=== PATIENT | female | born 1970 | race Caucasian/White ===

== ENCOUNTER 2018-01-08 19:10 | Observation (INO) | payer OTHER ==
[~2018-01-08] VITALS: Ht 175.3 cm; Wt 107.0 kg
[~2018-01-08 19:10] MED LIST: BACTRIM DS1 TAB PO; BENAZEPRIL10 MG PO; BENAZEPRIL40 M1 PO; BENAZEPRIL5 M3 PO; BENAZEPRIL5 MG PO; BYETTA10 MC1 SC; BYETTA10 SC; DOXYCYCL HYC100 MG PO; DOXYCYCLINE75 MG OR; GABAPENTIN300 MG PO; GABAPENTIN600 MG PO; GLIMEPIRIDE2 MG PO; GLIMEPIRIDE4 MG PO; HUMALOG 751000 UNITS IV; HUMALOG KW75 MG/25 K SC; HUMALOG100 MG/ML SC; HUMULIN R1 M1; HUMULIN R1 M1 SC; INSULIN SC; INSULIN SY0.3 MG/36 SC; LEVEMIR; LEVEMIR FLEXPEN SC; LEVEMIR SC; LEVEMIR1000 UNITS IM; LEVEMIR1000 UNITS SC; LIPITOR40 M1 PO; LOVASTATIN10 M1; LOVASTATIN10 M1 PO; METFORMIN1000 MG PO; METFORMIN500 MG PO; MEVACOR10 MG PO; MICROLET SC; MULTI VIT PO; NEURONTIN300 MG PO; NO HOME MEDS; NOVOLO1 SC; ONE TOUC7 XX; ONE TOUCH ULTRA 100 XX; TESSALON200 MG OR; TRAZODONE50 MG PO; TRICOR145 MG PO; ULTRAM50 M1 PO; VENTOLIN HF1 IN; VICOPROFEN PO; ZITHROMAX250 MG OR; ZITHROMAX250 MG PO; [UNRECOGNIZED DRUG - SUPPLY] SC; [UNRECOGNIZED DRUG - SUPPLY] SC
--- NOTE | 2018-01-08 19:20 | NUR ---
PT TO EXAM 14 AND CHANGED INTO GOWN. EKG BEING DONE
--- NOTE | 2018-01-08 19:49 | NUR ---
PT NOW WITH IV ESTABLISHED, BLOOD DRAWN, PLACED ON MONITOR. NO ACUTE DISTRESS NOTED. PT STATED THAT SHE HAD THE FEELING AGAIN, SEEN TO HAVE A PVC ON SCREEN.
[2018-01-08 20:08] LABS: HEMATOCRIT 42.9 % (37.0-47.0); HEMOGLOBIN 14.4 g/dl (12.0-16.0); IMMATURE GRANULOCYTES 0.7 % (0.0-1.0); MEAN CELL VOLUME 89.4 fL CALC (80.0-100.0); MEAN CORPUSCULAR HGB CONC 33.6 g/L CALC (32.0-36.0); NEUT# 6.85 thou/uL (2.00-7.15); RED BLOOD COUNT 4.8 mill/uL (4.20-5.60)
[2018-01-08 20:11] LABS: URINE BILIRUBIN - DIPSTICK NEGATIVE (NEGATIVE); URINE BLOOD DIPSTICK NEGATIVE (NEGATIVE); URINE COLOR YELLOW; URINE GLUCOSE - DIPSTICK 250 mg/dL (NEGATIVE); URINE KETONE NEGATIVE (NEGATIVE); URINE LEUK ESTERASE NEGATIVE (NEGATIVE); URINE NITRITE - DIPSTICK NEGATIVE (Negative); URINE PROTEIN - DIPSTICK NEGATIVE (NEG-TRACE); URINE SPECIFIC GRAVITY >=1.030; URINE UROBILINOGEN - DIPSTICK 0.2 E.U./dL (0.2)
[2018-01-08] MEDS ORDERED: LANTUS100 UNIT/M (20:25)
[2018-01-08 20:33] LABS: URINE CLARITY CLEAR
[2018-01-08 20:34] LABS: BARBITURATES NEGATIVE (NEGATIVE); COCAINE NEGATIVE (NEGATIVE); METHADONE NEGATIVE (NEGATIVE); OXCYCODONE NEGATIVE (NEGATIVE); TETRAHYDROCANNABIONOL NEGATIVE (NEGATIVE); TRICYLIC ANTIDEPRESSANTS NEGATIVE (NEGATIVE)
[2018-01-08 20:56] LABS: ACT PARTIAL THROMBO TIME 24.7 SECONDS (20.0-32.5); PROTHROMBIN TIME 11.2 SECONDS (9.0-12.5)
[2018-01-08 21:10] LABS: ALBUMIN 3.8 g/dL (3.2-5.0); ALKALINE PHOSPHATASE 74 u/l (38-126); ANION GAP 20 (6-22 (CALC)); BILIRUBIN, TOTAL 0.5 mg/dL (0.0-1.4); BUN 18 mg/dL (7-17); BUN/CREATININE RATIO 31 (12-20 (CALC)); CARBON DIOXIDE 19 mmol/l (22-30); CHLORIDE 103 mmol/l (95-108); CREATININE 0.6 mg/dL (0.5-1.0); ETHYL ALCOHOL 0 mg/dl (0-30); GFR > 60 ML/MIN (>=60 (CALC)); GFR FOR AFR.AMER. > 60 ML/MIN (>=60 (CALC)); POTASSIUM 4.1 mmol/l (3.5-5.1); SGOT/AST 24 u/l (14-36); SGPT/ALT 31 u/l (9-52); SODIUM 137 mmol/l (137-146); TOTAL PROTEIN 6.7 g/dL (6.3-8.2)
[2018-01-08 21:22] LABS: MYOGLOBIN 45 ng/mL (0 - 62)
--- NOTE | 2018-01-08 22:18 | NUR ---
PT UPDATED ON FINDINGS, WAITS FOR EDP SUMMARY AND PLAN OF CARE.
--- NOTE | 2018-01-08 23:00 | NUR ---
report to kamille/Conrado. Room 262. pt and advised.
--- NOTE | 2018-01-08 23:05 | NUR ---
pt to floor with sports equipment supervisor due to ER acuity. on monitor box.
[2018-01-08 23:10] VITALS: BP 140/87
--- NOTE | 2018-01-08 23:10 | NUR ---
PATIENT ARRIVED TO THE FLOOR VIA STRETCHER AND ACCOMPANIED BY [facility] CONTRACTING OFFICER. PT BROUGHT TO ROOM AND WEIGHED THEN SETTLED TO BED. ORIENT TO ROOM CALL SYSTEM. BED IN LOW POSITION AND CALL LIGHT IN REACH.
[2018-01-09 04:00] VITALS: BP 110/59
--- NOTE | 2018-01-09 04:00 | NUR ---
PT RESTED WELL. NO APPARENT ACUTE CHANGES NOTED IN PT'S CONDITION.
--- NOTE | 2018-01-09 07:10 | NUR ---
REPORT RECEIVED FROM BARBARA WEST;PT RESTING IN SEMI FOWLERS POSITION;INTRODUCED SELF TO PT AND POC DISCUSSED;PT COMPLAINS OF HEADACHE PAIN, NITRO PATCH TO RIGHT THIGH REMOVED;DENIES CP;RESPIRATIONS EVEN AND UNLABORED ON RA;ENCOUARGED TO EXPRESS ALL CONCERNS;CALL LIGHT IN REACH;WILL CONTINUE TO MONITOR
[2018-01-09 08:05] VITALS: BP 137/75
--- NOTE | 2018-01-09 08:05 | NUR ---
SPOKE WITH EL FROM OFFICE @ 9000. VERIFIED CONSULTATION.
--- NOTE | 2018-01-09 08:05 | NUR ---
PT RESTING IN SEMI FOWLERS POSITION;REPORTS A DECREASE IN HEADACHE PAIN SINCE NITRO PATCH WAS REMOVED;VS OBTAINED AND ASSESSMENT COMPLETED;RESPIRATIONS EVEN AND UNLABORED ON RA;ABDOMEN SOFT ON PALPATION AND ACTIVE IN ALL 4 QUADRANTS;STRONG PEDAL PULSES;TELE MONITOR IN PLACE;#20G TO LEFT FOREARM FLUSHED AND PATENT,SITE APPEARS HEALTHY AND FREE FROM EDEMA;PT DENIES ANY CURRENT NEEDS;ENCOURAGED TO CALL FOR ASSISTANCE IF NEEDED;CALL LIGHT IN REACH;WILL CONTINUE TO MONITOR
[2018-01-09 10:18] VITALS: BP 137/81
[2018-01-09 10:20] VITALS: BP 137/81
--- NOTE | 2018-01-09 11:10 | NUR ---
PT RESTING IN SEMI FOWLERS POSITION;TELE MONITOR IN PLACE;IV SITE PATENT;PT DENIES ANY CURRENT PAIN OR DISCOMFORTS;ENCOURAGED TO CALL FOR ASSISTANCE IF NEEDED;CALL LIGHT IN REACH;WILL CONTINUE TO MONITOR
--- NOTE | 2018-01-09 14:35 | NUR ---
PT RESTING IN SEMI FOWLERS POSITION;ALL D/C INFORMATION GIVEN AT THIS TIME AND QUESTIONS ANSWERED;PT DENIES ANY CURRENT NEEDS;IV SITE REMOVED WITH CATHETER INTACT;PT REFUSES WHEELCHAIR FOR D/C
--- NOTE | 2018-01-09 15:00 | NUR ---
Discharge instructions given. Patient verbalizes understanding of same. Discharged in stable condition via Ambulatory to Home with family. All belongings sent with pt.
== END 2018-01-09 15:00 | disposition home or self-care (01) | DRG 310 ==
LOC: ED 19:10 → ED-I 22:40 → ED 22:51 → MS2 22:52
PROVIDERS: Emergency Medicine; Nurse Practitioner Family; ADMIT Internal Medicine; ATTEND Internal Medicine
DX: R00.2 Palpitations (principal); E11.42 Type 2 diabetes mellitus with diabetic polyneuropathy; I10 Essential (primary) hypertension; E11.65 Type 2 diabetes mellitus with hyperglycemia; E78.5 Hyperlipidemia, unspecified; L71.9 Rosacea, unspecified; Z79.4 Long term (current) use of insulin
CPT/HCPCS: G0378

== ENCOUNTER 2021-09-08 18:05 | Emergency (ER) | payer OTHER ==
[~2021-09-08] VITALS: Ht 175.3 cm; Wt 112.0 kg
[~2021-09-08 18:05] MED LIST changes: +LANTUS100 UNIT/M
[2021-09-08] MEDS ORDERED: NAPROXEN500 MG PO (18:45)
[2021-09-08 19:01] VITALS: BP 178/75
== END 2021-09-08 19:10 | disposition home or self-care (01) | DRG 563 ==
LOC: ED 18:05
DX: S56.412A Strain of extensor muscle, fascia and tendon of left index finger at forearm level, initial encounter (principal); I10 Essential (primary) hypertension; E11.9 Type 2 diabetes mellitus without complications; E78.00 Pure hypercholesterolemia, unspecified; X50.0XXA Overexertion from strenuous movement or load, initial encounter; Y93.89 Activity, other specified; Y92.009 Unspecified place in unspecified non-institutional (private) residence as the place of occurrence of the external cause; Z79.84 Long term (current) use of oral hypoglycemic drugs; Z79.4 Long term (current) use of insulin

== ENCOUNTER 2022-10-19 19:29 | Emergency (ER) | payer BC ==
[2022-10-19] VITALS (9 sets, daily range): BP systolic 113–151; BP diastolic 63–100
[~2022-10-19] VITALS: Ht 175.3 cm; Wt 105.6 kg
[~2022-10-19 19:29] MED LIST changes: +NAPROXEN500 MG PO
[2022-10-19] MEDS ORDERED: MEDROL DOSEPAK4 MG PO (21:05)
[2022-10-19] MEDS ORDERED: ZPAK PO (21:05)
[2022-10-20] MEDS ORDERED: MEDROL DOSEPAK4 MG PO (14:59)
[2022-10-20] MEDS ORDERED: ZPAK PO (14:59)
== END 2022-10-19 21:38 | disposition home or self-care (01) | DRG 203 ==
LOC: ED 19:29
DX: J40 Bronchitis, not specified as acute or chronic (principal); I10 Essential (primary) hypertension; E11.9 Type 2 diabetes mellitus without complications; E78.00 Pure hypercholesterolemia, unspecified; Z79.84 Long term (current) use of oral hypoglycemic drugs; Z79.4 Long term (current) use of insulin; Z20.822 Contact with and (suspected) exposure to COVID-19